=== PATIENT | female | born 1995 | race Caucasian/White ===

== ENCOUNTER 2018-12-07 13:35 | Emergency (ER) | payer OTHER ==
--- NOTE | 2018-12-07 13:49 | EDPHY ---
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 Sudden onset of generalized pelvic pain this morning. The pain is constant and moderate. Associated with a 2 week history of vaginal bleeding, using 2 pads daily. Has an IUD in place. No urinary symptoms or vaginal discharge. No prior similar symptoms. No history of ovarian cyst. REVIEW OF SYSTEMS: complete 10 point ROS reviewed and is negative except for the noted elements in the HPI - Medical/Surgical History Hx Asthma: No Hx Chronic Respiratory Disease: No Hx Diabetes: No Hx Cardiac Disease: No Hx Renal Disease: No Hx Cirrhosis: No Hx Alcoholism: No Hx HIV/AIDS: No Hx Splenectomy or Spleen Trauma: No Other PMH: anxiety/depression, adhd - Social History Smoking Status: Never smoked - Physical Exam Exam: General Appearance: Alert, appears in pain Eyes: Pupils equal and round, no conjunctival pallor ENT, Mouth: Mucous membranes moist Neck: Normal inspection Respiratory: Lungs are clear to auscultation Cardiovascular: Regular rate and rhythm Gastrointestinal: Abdomen is soft, pelvic tenderness, right greater than left Neurological: A&O, nonfocal exam Skin: Warm and dry Extremities: Normal inspection Psychiatric: Mood and affect normal Constitutional: Initial Vital Signs Temperature (C) 36.4 C 12/07/18 13:43 Heart Rate 87 12/07/18 13:43 Respiratory Rate 16 12/07/18 13:43 Blood Pressure 107/68 12/07/18 13:43 O2 Sat (%) 96 12/07/18 13:43 O2 Delivery Mode Room Air Allergies/Adverse Reactions: No Known Allergies Allergy (Unverified 12/07/18 13:46) Home Medications: Medication Instructions Recorded Adderall 10 mg Tablet 12/07/18 Hydroxyzine HCl 12/07/18 Klonopin 12/07/18 Medical Decision Making - Diagnostics Imaging Results: Pelvic/Renal Ultrasound 12/07/18 13:46 Impression: 1. IUD appears in good position. 2. No adnexal masses or ovarian torsion. Findings and recommendations discussed with Emergency Department physician, VISHAL GOLDBERG at 14:52 hour, 12/07/2018. Final report concurs with initial preliminary interpretation. Abdomen CT 12/07/18 15:53 Impression: 1. Mild stool in the proximal colon. 2. Minimal irregularity of the sacroiliac joints, which could be related to sacroiliitis. 3. Elongated right hepatic lobe which could be related to a Nikole's lobe ( normal variant) or hepatomegaly. 4. Additional findings as above. Findings discussed with VISHAL GOLDBERG 12/07/2018 at 16:38. Imaging: Discussed imaging studies w/ call person Radiologist ED Course/Re-evaluation: This patient presents with severe pelvic pain. Stat test is negative , can rule out ectopic . Stat ultrasound of the pelvis obtained and reveals no evidence of ovarian cyst or torsion. Results discussed with the patient. On repeat exam, she continues to have severe pain. Toradol 30 mg IV given. Will obtain a CT scan to rule out appendicitis. On reassessment, pain has improved. Continues to have right lower quadrant and suprapubic tenderness without peritoneal signs. CT scan abdomen pelvis is unremarkable. Urinalysis is also unremarkable. Etiology of pain is unclear. Fortunately all the test results are relatively normal. I will discharge the patient home and she will follow up with gynecology or with her PCP. Abdominal pain precautions given. Differential Diagnosis: Differential diagnosis includes though it is not limited to ectopic , ovarian cyst, ovarian torsion, PID, UTI, appendicitis. - Data Points Laboratory Results: Laboratory Results 12/07/18 13:53 12/07/18 13:53 Medications Given: Discontinued Medications Ketorolac Tromethamine (Toradol) 30 mg IVP EDNOW ONE Stop: 12/07/18 15:34 Last Admin: 12/07/18 15:46 Dose: 30 mg Lorazepam (Ativan Injection) 0.5 mg IVP EDNOW ONE Stop: 12/07/18 14:24 Last Admin: 12/07/18 14:28 Dose: 0.5 mg Morphine Sulfate (Morphine) 4 mg IVP EDNOW ONE Stop: 12/07/18 13:52 Last Admin: 12/07/18 13:57 Dose: 4 mg Ondansetron HCl (Zofran) 4 mg IVP EDNOW ONE Stop: 12/07/18 13:52 Last Admin: 12/07/18 13:57 Dose: 4 mg Departure - Departure Disposition: Home, Routine, Self-Care Clinical Impression: Abdominal pain Qualifiers: Abdominal location: lower abdomen, unspecified Qualified Code(s): R10.30 - Lower abdominal pain, unspecified Condition: Good Instructions: Acute Abdominal Pain (ED) Additional Instructions: Sometimes we are unable to diagnose an obvious cause of abdominal pain in the Emergency Department. Based upon our evaluation today, we see no obvious explanation for your pain. Because more serious conditions can be difficult to diagnose early in the course of their presentation, we ask that you return to the Emergency Department in 12-24 hours for a recheck if you are still having pain. This is necessary to exclude the development of a more serious condition such as appendicitis or other intra-abdominal emergency. In the event your pain markedly increases before that time or you develop intractable vomiting or fever return to the Emergency Department immediately. Referrals: Hodan Benton MD [Medical Doctor] - 1 day, if not improved
[2018-12-07] MEDS ORDERED: ONDANSETRON 4 MG/2 ML VIAL IVP ONE (13:51)
[2018-12-07] MEDS ORDERED: LORazepam 2 MG/ML INJ IVP ONE (14:23)
[2018-12-07 14:31] LABS: PLATELET COUNT 324 10^3/uL (150-400)
[2018-12-07] MEDS ORDERED: KETOROLAC 15 MG/1 ML SDV IVP ONE (15:33)
[2018-12-07] MEDS ORDERED: IOPAMIDOL (ISOVUE-300) 100 ML BTL ONE (15:59)
[2018-12-07 17:05] VITALS: BP 117/65
== END 2018-12-07 17:11 | disposition home or self-care (01) ==
DX: R10.30 Lower abdominal pain, unspecified (principal)
CPT/HCPCS: 96374; J1885; J2060; J2270; J2405; Q9967